=== PATIENT | male | born 1970 | race Caucasian/White ===

== ENCOUNTER → 2020-10-11 15:21 | Outpatient (CLI) | payer MEDICARE, MEDICAID, SELFPAY ==
[2020-10-11 20:23] LABS: Barbiturates Screen,Urine Negative ng/ml (<200)
[2020-10-11 20:24] LABS: Benzodiazepines Screen,Urine Positive ng/ml (<200)
[2020-10-11 20:25] LABS: Amphetamine/Metha Screen,Urine Negative ng/ml (<1000); Cannabinoid Screen,Urine Negative ng/ml (<50)
[2020-10-11 20:26] LABS: Cocaine Screen,Urine Negative ng/ml (<300); Methadone Screen,Urine Negative ng/ml (<300)
[2020-10-11 20:27] LABS: Opiate Screen,Urine Negative ng/ml (<300)
[2020-10-11 20:28] LABS: Phencyclidine Screen,Urine Negative ng/ml (<25)
== END ==
PROVIDERS: Visit Provider Family Medicine
DX: Z79.899 Other long term (current) drug therapy (principal)
CPT/HCPCS: 80305

== ENCOUNTER 2020-10-18 12:16 | Emergency (ER) | payer MEDICARE, MEDICAID, SELFPAY ==
[2020-10-18 12:18] VITALS: BP 117/91; PULSE 70; RESP 16; TEMP 36.8; O2SAT 98; BMI 32.7
--- NOTE | 2020-10-18 12:37 | HMH.EDGENADL ---
ED Disposition Clinical Impression: LLQ abdominal pain, Renal cyst Disposition: Home, Self-Care Condition on Discharge: Good Referrals: Tutu Foley MD [Primary Care Provider] - - Critical Care Critical Care Time: No Attestation: On , the high probability of a clinically significant, sudden or life threatening deterioration of the following system(s) required my full and direct attention, intervention and personal management. The time I documented below is in addition to time spent performing reported procedures but includes the following listed in this critical care notation. Medical Decision Making - Medical Records Medical records reviewed: Yes: I reviewed the patient's medical records. - Chris Inquiry Pt receiving controlled substance: No Vital Signs: 10/18/20 12:18 10/18/20 12:43 10/18/20 13:55 Temperature 98.3 F Temperature Source Oral Pulse Rate 55 L 63 Pulse Rate [Right] 70 Respiratory Rate 16 18 Blood Pressure 122/76 122/76 Blood Pressure [Right Arm] 117/91 H Blood Pressure Mean 86 Blood Pressure Mean [Right Arm] 99 Blood Pressure Source Automatic Cuff Blood Pressure Position Sitting 02 Sat by Pulse Oximetry 98 100 98 Oxygen Delivery Method Room Air Room Air 10/18/20 14:01 Temperature Temperature Source Pulse Rate 63 Pulse Rate [Right] Respiratory Rate Blood Pressure 121/78 Blood Pressure [Right Arm] Blood Pressure Mean 92 Blood Pressure Mean [Right Arm] Blood Pressure Source Blood Pressure Position 02 Sat by Pulse Oximetry 99 Oxygen Delivery Method - Lab Data Lab Results 10/18/20 12:20: Urine Color Anais, Urine Appearance Clear, Urine pH 6.0, Ur Specific [place] >= 1.030, Urine Protein Trace, Urine Glucose (UA) Negative, Urine Ketones Negative, Urine Blood Negative, Urine Nitrate Negative, Urine Bilirubin Negative, Urine Urobilinogen 0.2, Ur Leukocyte Esterase Negative, Urine RBC None, Urine WBC None, Ur Squamous Epith Cells Occasional, Urine Bacteria None 10/18/20 12:55: WBC 4.9, RBC 4.73, Hgb 14.8, Hct 41.9 L, MCV 88.7, MCH 31.3 H, MCHC 35.3, RDW 13.7, Plt Count 275, MPV 7.4, Neut % (Auto) 56.7, Lymph % (Auto) 32.8, [place] % (Auto) 6.0, Eos % (Auto) 3.4, Baso % (Auto) 1.0, Neut # (Auto) 2.8, Lymph # (Auto) 1.6, [place] # (Auto) 0.3, Eos # (Auto) 0.2, Baso # (Auto) 0.1 10/18/20 12:55: Sodium 140, Potassium 3.9, Chloride 102, Carbon Dioxide 30, Anion Gap 11.9, BUN 13, Creatinine 1.10, Estimated Creat Clear 120, Estimated GFR 71, Est GFR ( Amer) 86, Glucose 85, Calcium 8.6, Total Bilirubin 0.8, AST 43, ALT 28, Alkaline Phosphatase 54, C-Reactive Protein 1.1, Total Protein 7.2, Albumin 4.2, Globulin 3.0, Albumin/Globulin Ratio 1.4 Result diagrams: 10/18/20 12:55 10/18/20 12:55 Orders (Tests/Meds): ED MEDICATIONS Discontinued Medications Generic Name Dose Route Start Last Admin Trade Name Freq PRN Reason Stop Dose Admin Iopamidol 75 ml 10/18/20 13:51 10/18/20 13:52 Iopamidol-370 (76%);100ml Bottle IV 10/18/20 13:52 75 ml ONCE ONE Administration Sodium Chloride 10 ml 10/18/20 13:51 10/18/20 13:52 Sodium Chloride 0.9% 10ml Syr (Rad Only) IV 10/18/20 13:52 10 ml ONCE ONE Administration Medical Decision Narrative: Patient to the ED today for further evaluation of left lower quadrant abdominal pain. Patient is well-appearing on examination, ambulatory, presents from primary care clinic today. Will obtain CT abdomen pelvis with IV contrast for further evaluation of intra-abdominal pathology, will also do a CBC, CMP, CRP. P obtained, 1.1, no significant white blood cell count elevation, no [place] abnormalities. Patient remains well-appearing on reassessment. CT abdomen and pelvis independently reviewed and interpreted with no evidence of intra-abdominal free fluid, radiologic interpretation shows reticula without evidence of diverticulitis, and a complex appearing left inferior pole renal cyst. Need follow-up for this
--- NOTE | 2020-10-18 12:41 | CT_ITS ---
PROCEDURE: CT ABDOMEN PELVIS W CON CLINICAL INDICATION: LLQ Abd pain COMPARISON: No exams were available for comparison TECHNIQUE: IV Contrast: 75ML Isovue 370 Oral Contrast None Axial images obtained with sagittal and coronal reformats. All CT scans at the facility use one or more dose reduction, viz: automated exposure control, ma/kV adjustment per patient size (including targeted exams where dose is matched to indication, i.e. head), or iterative reconstruction technique. FINDINGS: Minor bibasal atelectasis is noted. The liver, spleen, adrenal glands, and pancreas are unremarkable. Cholecystectomy is noted. No intra or extrahepatic biliary dilation. Focal hypodense lesions are noted in the left kidney inferior pole measuring 1.5 centimeters, demonstrates minor heterogeneous density internally. No other focal lesions are noted in the kidneys bilaterally. The bladder is under distended. There is apparent bladder wall thickening with minor perivesical stranding. The spleen, adrenal glands, and pancreas are unremarkable. Focal soft tissue density nodule noted at the tail of the pancreas measuring up to 9 millimeters in short axis diameter, likely represents a splenule versus a subcentimeter lymph node. No other lymphadenopathy is noted. No free fluid or free intraperitoneal air. The large and small bowel loops demonstrate no focal wall thickening, obstruction or adjacent inflammatory changes. Small hiatus hernia is noted. Few uncomplicated colonic diverticula are noted. No evidence of diverticulitis. Postsurgical changes are noted in the right lower quadrant. Appendix is surgically absent. No significant retroperitoneal or mesenteric lymphadenopathy. The prostate gland is unremarkable. Small bilateral fat containing inguinal hernias. Visualized osseous structures are unremarkable. IMPRESSION: Apparent bladder wall thickening with minor perivesical stranding is noted. Cystitis should be considered. Correlation with urinalysis is recommended. Focal hypodense lesion in the inferior pole of the left kidney measuring 1.5 centimeters, demonstrates internal septations, raises the concern for a complex cyst. Nonemergent ultrasound of the kidneys is suggested. No other acute intra-abdominal abnormality. Dictated by: Brooke Rizzo 10/18/2020 14:18 Brooke Rizzo OV 10/18/2020 14:18
[2020-10-18 12:43] VITALS: BP 122/76; PULSE 55; RESP 18; O2SAT 100
[2020-10-18 12:47] LABS: Microscopic, Urine URINE MICROSCOPIC (MICROSCOPIC)
[2020-10-18 12:50] LABS: Appearance,Urine CLEAR (Clear); Bilirubin,Urine Negative (Negative); Blood, Urine Negative (Negative); Color,Urine AMBER (Yellow); Glucose,Urine (UA) Negative (Negative); Ketones,Urine Negative (Negative); Leukocyte Esterase,Urine Negative (Negative); Nitrate,Urine Negative (Negative); Protein,Urine TRACE (Negative); Specific Gravity, Urine >= 1.030 (1.005-1.030); Urobilinogen,Urine 0.2 EU/dl (0.2)
[2020-10-18 12:58] LABS: Squamous Epithelial Cell,Urine Occasional #/hpf (0-5)
--- NOTE | 2020-10-18 13:19 | PC.NURSE ---
notified rad of ct order
--- NOTE | 2020-10-18 13:33 | PC.NURSE ---
patient to CT
[2020-10-18 13:35] LABS: Basophils # 0.1 K/mm3 (0-0.2); Eosinophils # 0.2 K/mm3 (0.0-0.4); Eosinophils % 3.4 % (0.1-12.0); Hematocrit 41.9 % (42.0-52.0); Hemoglobin 14.8 g/dL (14.1-18.0); Lymphocytes # 1.6 K/mm3 (0.7-4.5); Lymphocytes % 32.8 % (10-50); Mean Corpuscular HGB Conc 35.3 g/dL (31.8-35.4); Mean Corpuscular Hemoglobin 31.3 pg (27.0-31.2); Mean Corpuscular Volume 88.7 fl (80-94); Mean Platelet Volume 7.4 fl (7.4-10.4); Monocytes # 0.3 K/mm3 (0.1-1.0); Neutrophils # 2.8 K/mm3 (1.8-7.8); Neutrophils % 56.7 % (37.0-80.0); Platelet Count 275 K/mm3 (142-424); Red Blood Count 4.73 M/mm3 (4.60-6.20); Red Cell Distribution Width 13.7 % (11.5-17.5); White Blood Count 4.9 K/mm3 (4.8-10.8)
[2020-10-18 13:44] LABS: Alanine Aminotransferase 28 U/L (12-78); Albumin Level 4.2 g/dl (3.5-5.0); Albumin/Globulin Ratio 1.4 (1.1-1.8); Alkaline Phosphatase 54 U/L (38-126); Anion Gap 11.9 mEq/L (5-15); Aspartate Amino Transferase 43 U/L (17-59); Bilirubin,Total 0.8 mg/dl (0.2-1.3); Blood Urea Nitrogen 13 mg/dl (9-20); Calcium 8.6 mg/dl (8.4-10.2); Carbon Dioxide 30 mmol/L (22.0-30.0); Chloride 102 mmol/L (98-107); Creatinine Clearance Estimated 120 mL/min (50-200); Estimated Glomerular Filt Rate 71 ml/min (>60); GFR (African American) 86 ML/MIN (>60); Glucose 85 mg/dl (74-100); Potassium 3.9 mmoL/L (3.5-5.1); Sodium 140 mmol/L (136-145); Total Protein,Serum 7.2 g/dl (6.3-8.2)
[2020-10-18 13:50] LABS: C-Reactive Protein 1.1 mg/L (0-4)
[2020-10-18 13:55] VITALS: BP 122/76; PULSE 63; O2SAT 98
[2020-10-18 14:01] VITALS: BP 121/78; PULSE 63; O2SAT 99
[2020-10-18 15:01] VITALS: BP 122/81; PULSE 55; O2SAT 100
[2020-10-18 15:23] VITALS: BP 122/81; PULSE 63; RESP 16; TEMP 36.8; O2SAT 100
== END 2020-10-18 15:25 | disposition home or self-care (01) ==
PROVIDERS: Emergency Provider Student in an Organized Health Care Education/Training Program; PCP Family Medicine
DX: N28.1 Cyst of kidney, acquired (principal); R10.32 Left lower quadrant pain; F41.8 Other specified anxiety disorders; Z79.899 Other long term (current) drug therapy
CPT/HCPCS: 74177; 80053; 81001; 85025; 86140; 99283; Q9967

== ENCOUNTER → 2020-11-18 14:26 | Outpatient (CLI) | payer MEDICARE, MEDICAID, SELFPAY ==
[2020-11-18 14:55] LABS: Amphetamine/Metha Screen,Urine Negative ng/ml (<1000); Barbiturates Screen,Urine Negative ng/ml (<200)
[2020-11-18 14:56] LABS: Benzodiazepines Screen,Urine Positive ng/ml (<200)
[2020-11-18 14:57] LABS: Cannabinoid Screen,Urine Negative ng/ml (<50)
[2020-11-18 14:58] LABS: Cocaine Screen,Urine Negative ng/ml (<300); Methadone Screen,Urine Negative ng/ml (<300)
[2020-11-18 14:59] LABS: Opiate Screen,Urine Negative ng/ml (<300); Phencyclidine Screen,Urine Negative ng/ml (<25)
== END ==
PROVIDERS: Visit Provider Family Medicine
DX: F41.9 Anxiety disorder, unspecified (principal); G89.4 Chronic pain syndrome
CPT/HCPCS: 80305

== ENCOUNTER → 2021-01-28 13:05 | Outpatient (CLI) | payer MEDICARE, MEDICAID, SELFPAY ==
[2021-01-28 13:44] LABS: Amphetamine/Metha Screen,Urine Negative ng/ml (<1000); Benzodiazepines Screen,Urine Positive ng/ml (<200)
[2021-01-28 13:45] LABS: Barbiturates Screen,Urine Negative ng/ml (<200); Cannabinoid Screen,Urine Negative ng/ml (<50)
[2021-01-28 13:46] LABS: Cocaine Screen,Urine Negative ng/ml (<300)
[2021-01-28 13:47] LABS: Methadone Screen,Urine Negative ng/ml (<300); Opiate Screen,Urine Negative ng/ml (<300)
[2021-01-28 13:48] LABS: Phencyclidine Screen,Urine Negative ng/ml (<25)
== END ==
PROVIDERS: Visit Provider Family Medicine
DX: G89.4 Chronic pain syndrome (principal)
CPT/HCPCS: 80305

== ENCOUNTER 2021-02-17 07:44 | Day surgery (SDC) | payer MEDICARE, MEDICAID, SELFPAY ==
[2021-02-14 12:37] VITALS: BMI 34.2
[2021-02-17] VITALS (7 sets, daily range): BP systolic 85–133; BP diastolic 51–94; PULSE 66–81; RESP 18; TEMP 36.3–36.7; O2SAT 90–100
--- NOTE | 2021-02-17 08:56 | HMH.ANESCL ---
[facility] Anesthesia Checklist - Structural Data Admitted From: Home Planned Operative Procedure/s: colonoscopy Consent for Planned Operative Procedure(s) Verified: Yes - Airway Assessment C-Spine Mobility Assessed: Yes TMJ Mobility Assessed: Yes Dentition: Edentulous - Neurological Assessment Level of Consciousness: Awake, Alert, Appropriate - Anesthesia Plan Anesthesia Risk discussed: Yes Anesthesia Plan: Verified ASA Class: III Anesthesia Type: MAC [facility] History I have reviewed the patient's past medical history: Yes Medical History: Reports:: Anxiety, Depression Denies:: Cancer, Diabetes Mellitus Type 1, Diabetes Mellitus Type 2, Internal Pacemaker, MRSA, Seizures *Have you ever received a pneumonia vaccine?: No *Have you received a flu vaccine this season?: No Other Medical History: Reports: Sinus Problems Anesthesia experience/problems:: none Other Surgeries: Yes: Appendectomy, Cholecystectomy, Sinus Surgery. No: Pacemaker Amputation: No Fractures: Yes - *Social History Last grade of school completed: High school graduate Smoking Status: Current every day smoker Tobacco Type: e-cigarettes # Packs/Day (cigarettes): 0 Alcohol Intake: never Substance Use Type: denies use *Occupational Status:: disabled Housing: house Household Members: family *Travel in the last 8 weeks: None - Psychiatric History Pschychiatric History:: Reports:: Anxiety, Depression Family Hx:: Non-contributory
--- NOTE | 2021-02-17 09:24 | HMH.SCOPE ---
- Procedure: Date: 02/17/21 Patient Date of :: 1970 Procedure Performed:: Colonoscopy with polypectomy Indications:: Bright red blood per rectum Performing Provider:: Chavez Juarez MD Referring Provider:: . Sedation:: Monitored anesthesia care Procedure:: After informed consent was obtained the patient was taken to the endoscopy suite. Sedation ensued after the patient was transferred to the left lateral decubitus position. Pulse, blood pressure, and oxygen saturation were monitored throughout the procedure. Digital rectal exam revealed no significant abnormality. The colonoscope was placed in position. The entire colon was evaluated. The colonoscope was carefully removed and the patient was transferred to recovery in stable condition. Please see findings and specimens below for detail. Findings:: Bowel preparation relatively fair Fairly severe spasticity/lack of relaxation Fairly mild hemorrhoidal cushions with no active thrombosis or bleeding Complex pedunculated polyp at 42 cm Specimens:: Complex pedunculated polyp at 42 cm (snare) Recommendations:: Timing of repeat colonoscopy is pending pathology but will likely be around 2-3 years secondary to size/nature of polyp and spasticity/lack of relaxation. Complications:: No immediate Estimated blood obtained (mL): 1
== END 2021-02-17 10:09 | disposition home or self-care (01) ==
LOC: OUTP 07:46
PROVIDERS: PCP Family Medicine; Visit Provider Surgery
PROC: 0DJD8ZZ Inspection of Lower Intestinal Tract, Via Natural or Artificial Opening Endoscopic (ICD-10-PCS; principal; 2021-02-17 08:30)
DX: K56.2 Volvulus (principal); K64.8 Other hemorrhoids; K63.5 Polyp of colon; F41.9 Anxiety disorder, unspecified; F32.A Depression, unspecified; Z88.6 Allergy status to analgesic agent; Z79.899 Other long term (current) drug therapy
CPT/HCPCS: 45385; 88305

== ENCOUNTER → 2021-05-09 10:42 | Outpatient (CLI) | payer MEDICARE, MEDICAID, SELFPAY ==
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
== END ==
PROVIDERS: PCP Family Medicine; Visit Provider Family Medicine
DX: R51.9 Headache, unspecified (principal)
CPT/HCPCS: 70450

== ENCOUNTER → 2021-07-29 10:46 | Outpatient (CLI) | payer MEDICARE, MEDICAID, SELFPAY ==
--- NOTE | 2021-07-29 10:46 | MR_ITS ---
FINAL REPORT CLINICAL HISTORY: abnormal CT. pt states that he wakes up every day with a headache that last 3 minutes. he has hx of sinus and left eye problems. multiple surgeries on left eye. COMPARISON: CT dated May 09, 2021 FINDINGS: Multi planar MR imaging was obtained through the brain without contrast. There appears to be a prominent cisterna magna. The cerebellum vermis is intact. The midline structures appear intact. There is no evidence of Chiari malformation. On T2 and flair axial images the brain parenchyma is homogeneous. On diffusion-weighted images there is no evidence of restricted diffusion. There is abnormal signal throughout a hypoplastic left maxillary sinus consistent with chronic sinusitis. The seventh and eighth nerve root complexes are intact. IMPRESSION: No acute intracranial abnormality. Chronic left maxillary sinusitis. Reviewed, Interpreted and Dictated by Young Guerra MD Transcribed by Villa Salas Authenticated by Young Guerra MD on 07/29/2021 01:27:21 PM [facility]
== END ==
PROVIDERS: PCP Family Medicine; Visit Provider Family Medicine
DX: R51.9 Headache, unspecified (principal); Z87.828 Personal history of other (healed) physical injury and trauma
CPT/HCPCS: 70551

== ENCOUNTER → 2021-11-08 15:21 | Outpatient (CLI) | payer MEDICARE, MEDICAID, SELFPAY ==
--- NOTE | 2021-11-08 15:22 | US_ITS ---
FINAL REPORT TECHNIQUE: Ultrasound images of the kidneys were obtained. CLINICAL HISTORY: .LUQ PAIN FINDINGS: US RETROPERITONEAL The right kidney measures 10.1 cm in length. It is normal in echogenicity. There is no hydronephrosis. The left kidney measures 10.5 cm in length. There is a 2.2 cm cyst in the lower pole. There is no hydronephrosis. Limited images of the liver are unremarkable. The liver measures 9.2 cm in length. IMPRESSION: Left renal cyst. Otherwise unremarkable exam. Reviewed, Interpreted and Dictated by Kasi Fuller III, MD Transcribed by Sera Garzon Authenticated and [facility]
== END ==
PROVIDERS: PCP Family Medicine; Visit Provider Family Medicine
DX: N28.1 Cyst of kidney, acquired (principal)
CPT/HCPCS: 76770

== ENCOUNTER → 2022-11-01 13:06 | Outpatient (CLI) | payer MEDICARE, MEDICAID, SELFPAY ==
[2022-11-01 18:32] LABS: Cannabinoid Screen,Urine Negative ng/ml (<50); Opiate Screen,Urine Negative ng/ml (<300)
[2022-11-01 18:33] LABS: Methadone Screen,Urine Negative ng/ml (<300)
[2022-11-01 19:06] LABS: Cocaine Screen,Urine Negative ng/ml (<300)
[2022-11-01 20:27] LABS: Amphetamine/Metha Screen,Urine Negative ng/ml (<1000); Barbiturates Screen,Urine Negative ng/ml (<200); Benzodiazepines Screen,Urine Positive ng/ml (<200); Phencyclidine Screen,Urine Negative ng/ml (<25)
== END ==
PROVIDERS: PCP Family Medicine; Visit Provider Family Medicine
DX: M54.2 Cervicalgia (principal)
CPT/HCPCS: 80305